=== PATIENT | male | born 1960 | race Caucasian/White ===

== ENCOUNTER → 2024-09-23 12:17 | Outpatient (CLI) | payer OTHER, SELFPAY ==
--- NOTE | 2024-09-23 12:19 | DI.ECHO.S_ITS ---
[facility] : : [address] : : [place] : : [id number] : : Phone: [phone] Echocardiogram Report + + :Name: KERA ODELL Study Date: 09/23/2024 Height: 69 in : :Hospital ReadingLocation: Weight: 235 lb : : Gender: Male BSA: 2.2 m2 : :: 1960 Age: 63 yrs BP: 149/107 mmHg: :Reason For Study: ISCHEMIC HEART DISEASE : :Ordering Physician: FARAZ, : :JIM Performed By: Mikhail Moya : :Referring: JIM RUTH : + + Interpretation Summary There is mild concentric left ventricular hypertrophy. The ejection fraction is estimated to be 65-70%. Normal diastolic function. The right ventricle is normal in size and function. No significant valvular abnormalities. Pulmonary artery pressures cannot be estimated because of the lack of a measurable TR jet velocity. Procedure: A two-dimensional transthoracic echocardiogram with color flow and Doppler was performed. The study quality was technically good. There is no prior echocardiogram noted for this patient. The patient was in normal sinus rhythm during the exam. Left Ventricle: The left ventricle is normal in size. There is mild concentric left ventricular hypertrophy. Proximal septal thickening is noted. The LVOT velocity is 1.42 m/s. The left ventricular outflow velocity with valsalva is 1.68. The left ventricular cavity is small. There is no ventricular septal defect visualized. The ejection fraction is estimated to be 65-70%. There are no focal wall motion abnormalities. Normal diastolic function. Right Ventricle: The right ventricle is normal in size and function. Atria: The left atrial size is normal. Right atrial size is normal. There is no Doppler evidence for an interatrial shunt. Mitral Valve: The mitral valve leaflets appear normal. There is no evidence of stenosis, fluttering, or prolapse. There is no mitral regurgitation noted. Aortic Valve: The aortic valve is trileaflet. The aortic valve opens well. There is no aortic valve stenosis. No aortic regurgitation is present. Tricuspid Valve: The tricuspid valve leaflets are thin and pliable. No tricuspid regurgitation. Pulmonary artery pressures cannot be estimated because of the lack of a measurable TR jet velocity. Pulmonic Valve: The pulmonic valve leaflets are thin and pliable; valve motion is normal. There is trace pulmonic regurgitation. Great Vessels: The aortic root is normal size. The dimensions of the ascending aorta are normal. The pulmonary artery is normal size. The inferior vena cava was not visualized. Pericardium/ Pleura There is no pericardial effusion. MMode/2D Measurements & Calculations LVIDd: 4.4 cm LVOT diam: 2.0 cm LVIDs: 2.1 cm Ao root diam: 3.2 cm FS: 51.0 % asc Aorta Diam: 3.5 cm EPSS: 0.46 cm IVSd: 1.2 cm LVPWd: 1.2 cm LV mukherjee. diameter/BSA (cm/m^2): 2.0 LV sys. diameter/BSA (cm/m^2): 0.97 LA A2 area: 18.0 cm2 RA long axis: 5.0 cm LA A4 area: 20.4 cm2 RA area: 15.6 cm2 LA length (vol): 5.5 cm RA vol: 40.9 ml LA vol: 56.4 ml RA : 18.5 ml/m2 LA vol index: 25.5 ml/m2 RVD1 (basal): 3.3 cm RVD2 (mid): 2.8 cm TAPSE: 2.1 cm Doppler Measurements & Calculations Ao V2 max: 157.7 cm/sec LVOT Max Devin: 142.4 cm/sec Ao V2 mean: 118.8 cm/sec LV V1 max P.4 mmHg Ao max P.9 mmHg LV V1 VTI: 26.6 cm Ao mean P.1 mmHg CAIT(I,D): 2.3 cm2 Ao V2 VTI: 34.4 cm CAIT(V,D): 2.7 cm2 sev ratio: 0.78 CAIT indexed to BSA (cm^2/m^2): 1.1 MV E max devin: 59.4 cm/sec PA V2 max: 103.4 cm/sec MV A max devin: 69.9 cm/sec PA V2 mean: 66.1 cm/sec MV E/A: 0.85 PA mean P.0 mmHg Med Peak E' Devin: 3.8 cm/sec PA pr(Accel): 65.3 mmHg E/E' med: 15.7 Lat Peak E' Devin: 6.7 cm/sec E/E' lat: 8.8 E/e' average: 12.2 MV dec time: 0.31 sec SV(LVOT): 80.3 ml Reading Physician:[id number] PM
== END ==
LOC: ECHO 12:19
PROVIDERS: Referring Provider Chiropractor; Visit Provider Chiropractor
DX: I25.9 Chronic ischemic heart disease, unspecified (principal); I51.7 Cardiomegaly
CPT/HCPCS: 93306